=== PATIENT | female | born 1945 | race Caucasian/White ===

== ENCOUNTER 2021-02-25 15:42 | Emergency (ER) | payer SELFPAY ==
[~2021-02-25] VITALS: Ht 162.5 cm; Wt 72.6 kg
== END 2021-02-25 21:06 | disposition home or self-care (01) ==
LOC: ED 15:42
DX: S00.83XA Contusion of other part of head, initial encounter (principal); S80.01XA Contusion of right knee, initial encounter; S09.90XA Unspecified injury of head, initial encounter; W19.XXXA Unspecified fall, initial encounter; Y93.89 Activity, other specified; Y92.89 Other specified places as the place of occurrence of the external cause; Y99.8 Other external cause status